=== PATIENT | female | born 1975 | race African-American/Black ===

== ENCOUNTER 2018-03-29 19:35 | Emergency (ER) | payer OTHER, SELFPAY ==
[2018-03-29] MEDS ORDERED: Ketorolac Tromethamine 30 MG/ML VIAL ONE (20:04)
[2018-03-29] MEDS ORDERED: Diazepam 5 MG TAB ONE (20:04)
[2018-03-29 20:22] LABS: #Basophils 0.1 thou/uL (0.0-0.2); #Eosinphils 0.1 thou/uL (0.0-0.7); #Lymphocytes 2.2 thou/uL (1.20-3.40); #Monocytes 0.4 thou/uL (0.11-0.59); #Neutrophils 5.5 thou/uL (1.40-6.50); %Basophils 1.2 % (0.0-1.0); %Eosinophils 0.9 % (0.0-10.0); %Lymphocytes 26.2 % (21.0-51.0); %Monocytes 4.9 % (0.0-10.0); %Neutrophils 66.9 % (42.0-75.0); Hemoglobin 11.5 g/dL (12.0-16.0); Mean Corpuscular HGB CONC 31.5 g/dL (32.0-36.0); Mean Corpuscular Hemoglobin 25.1 pg (27.0-31.0); Mean Corpuscular Volume 79.7 fL (78.0-98.0); Mean Platelet Volume 6.5 fL (7.4-10.4); Platelet Count 285 thou/uL (130-400); RBC Distribution Width 15.2 % (11.5-14.5); Red Blood Cell (RBC) Count 4.59 mill/uL (4.20-5.40); White Blood Cell (WBC) Count 8.2 thou/uL (4.8-10.8)
--- NOTE | 2018-03-29 20:24 | RAD ---
LEFT SHOULDER THREE VIEWS: 03/29/2018 HISTORY: Injury. Trauma. Pain. COMPARISON: None. FINDINGS: There is no widening of the acromioclavicular or coracoclavicular interspace. No displaced fracture or dislocation is seen. IMPRESSION: No acute findings. POS: [facility]
--- NOTE | 2018-03-29 20:25 | RAD ---
CHEST TWO VIEWS: 03/29/2018 HISTORY: Trauma. Pain. COMPARISON: None. FINDINGS: The cardiac silhouette is mildly prominent. Mild pulmonary vascular prominence. No pneumothorax, pl eural fluid, focal consolidation, or alveolar edema. IMPRESSION: No acute findings. POS: [facility]
[2018-03-29 20:35] LABS: Anion Gap 15 mmol/L (10-20); BUN (Urea Nitrogen) 9 mg/dL (7.0-18.7); Calc. Creatinine Clearance 0 mL/min (70-130); Calcium 9.4 mg/dL (7.8-10.44); Carbon Dioxide 24 mmol/L (22-29); Chloride 102 mmol/L (98-107); Estimated GFR-MDRD Greater than 90; Glucose 93 mg/dL (70-105); Potassium 3.7 mmol/L (3.5-5.1); Sodium 137 mmol/L (136-145)
[2018-03-29 20:40] LABS: CKMB 0.4 ng/mL (0-6.6); Troponin I Less than 0.010 ng/mL (< 0.028)
== END 2018-03-29 20:50 | disposition home or self-care (01) ==
LOC: SCSER 19:35
DX: S46.912A Strain of unspecified muscle, fascia and tendon at shoulder and upper arm level, left arm, initial encounter (principal); F41.9 Anxiety disorder, unspecified; F90.9 Attention-deficit hyperactivity disorder, unspecified type; Z79.899 Other long term (current) drug therapy; V89.2XXA Person injured in unspecified motor-vehicle accident, traffic, initial encounter
CPT/HCPCS: 71046; 80048; 82553; 84484; 85025; 93005; 96372; J1885

== ENCOUNTER 2018-05-25 14:20 | Outpatient (CLI) | payer OTHER | END 2018-05-25 14:21 | disposition home or self-care (01) | LOC: BICMAMMO 14:20 | PROVIDERS: ATTEND Nurse Practitioner Women's Health | DX: Z12.31 Encounter for screening mammogram for malignant neoplasm of breast (principal); Z80.3 Family history of malignant neoplasm of breast | CPT/HCPCS: 77063; 77067 ==

== ENCOUNTER 2018-11-19 17:55 | Emergency (ER) | payer OTHER, SELFPAY ==
[2018-11-19 19:19] LABS: #Eosinphils 0.1 thou/uL (0.0-0.7); #Lymphocytes 1.3 thou/uL (1.20-3.40); #Monocytes 0.4 thou/uL (0.11-0.59); %Basophils 0.4 % (0.0-1.0); %Eosinophils 0.7 % (0.0-10.0); %Lymphocytes 16.4 % (21.0-51.0); %Monocytes 4.7 % (0.0-10.0); %Neutrophils 77.8 % (42.0-75.0); Hemoglobin 12.2 g/dL (12.0-16.0); Mean Corpuscular HGB CONC 31.7 g/dL (32.0-36.0); Mean Corpuscular Volume 88.4 fL (78.0-98.0); Mean Platelet Volume 6.9 fL (7.4-10.4); Platelet Count 321 thou/uL (130-400); RBC Distribution Width 14.4 % (11.5-14.5); Red Blood Cell (RBC) Count 4.38 mill/uL (4.20-5.40); White Blood Cell (WBC) Count 7.7 thou/uL (4.8-10.8)
[2018-11-19 19:45] LABS: ALT (SGPT) 13 U/L (8-55); AST (SGOT) 17 U/L (5-34); Albumin 4.3 g/dL (3.5-5.0); Alkaline Phosphatase 115 U/L (40-150); Anion Gap 13 mmol/L (10-20); BUN (Urea Nitrogen) 9 mg/dL (7.0-18.7); Bilirubin, Total 0.3 mg/dL (0.2-1.2); Calc. Creatinine Clearance 0 mL/min (70-130); Calcium 9.5 mg/dL (7.8-10.44); Carbon Dioxide 23 mmol/L (22-29); Chloride 102 mmol/L (98-107); Estimated GFR-MDRD 73; Globulin 3.4 g/dL (2.4-3.5); Glucose 97 mg/dL (70-105); Potassium 3.8 mmol/L (3.5-5.1); Protein, Total 7.7 g/dL (6.0-8.3); Sodium 134 mmol/L (136-145)
--- NOTE | 2018-11-19 20:15 | CT ---
CT BRAIN WITHOUT CONTRAST: 11/19/18 HISTORY: Seizure. COMPARISON: 10/23/15. No evidence of acute infarct, hemorrhage, midline shift or abnormal extra-axial fluid collections are seen. A cavum septum pellucidum et vergae and probable small arachnoid cyst in the right middle cran ial fossa are stable. No evidence of acute infarct, hemorrhage, midline shift or abnormal extra-axial fluid collections are seen. The ventricular size is appropriate and the basilar cisterns patent. The bony calvarium is intact. The visualized paranasal sinuses and mastoid air cells are well aerated . IMPRESSION: No CT evidence of acute intracranial process. POS: [facility]
[2018-11-19 20:50] LABS: Acetaminophen Less than 6.0 mcg/mL (10.0-30.0); Alcohol Less than 10 mg/dL (Less than 10); Salicylate Less than 8.0 mg/dL (15.0-30.0)
[2018-11-19 20:54] LABS: Pregnancy Test - Urine (BHCG) Negative (Negative); Pregu Control Background? CLEAR/WHITE (CLR/WHITE); Pregu Control Bar Appear? YES (CONTROL BAR); Specific Gravity 1.016 (1.002-1.036)
[2018-11-19] MEDS ORDERED: Lorazepam 2 MG/ML VIAL ONE (22:50)
[2018-11-19] MEDS ORDERED: Acetaminophen 500 MG TAB ONE (22:55)
--- NOTE | 2018-11-21 16:56 | EKG ---
Test Reason : SEIZURE Blood Pressure : / mmHG Vent. Rate : 114 BPM Atrial Rate : 114 BPM P-R Int : 140 ms QRS Dur : 076 ms QT Int : 348 ms P-R-T Axes : 062 009 010 degrees QTc Int : 479 ms Sinus tachycardia Otherwise normal ECG Confirmed by HERNÁN YOUNG DO ([id number]), editor in chief BRADLEY MOFFETT ([id number]) on 11/21/2018 4:56:12 PM Referred By: Confirmed By:HERNÁN YOUNG DO
== END 2018-11-19 23:38 | disposition home or self-care (01) ==
LOC: ERS 17:55
DX: T45.0X1A Poisoning by antiallergic and antiemetic drugs, accidental (unintentional), initial encounter (principal); R56.9 Unspecified convulsions; I10 Essential (primary) hypertension; E11.40 Type 2 diabetes mellitus with diabetic neuropathy, unspecified; F32.9 Major depressive disorder, single episode, unspecified
CPT/HCPCS: 36415; 70450; 80053; 80307; 81025; 84146; 85025; 85379; 93005; 96360; 96361; J2060